=== PATIENT | female | born 1990 | race Caucasian/White ===

== ENCOUNTER 2016-10-04 12:04 | Emergency (ER) | payer OTHER ==
[~2016-10-04 12:04] MED LIST: BUTA1CAP29 PO; ESOM40CA PO; GUAI118L13 PO; TOPI25TA32 PO
--- NOTE | 2016-10-04 13:11 | RAD ---
06, 3 views, 10/04/2016: History: Injury, pain No fracture is identified. The anterior inferior nasal spine is intact. The visualized paranasal sinuses are clear. IMPRESSION: No acute nasal bone abnormality is detected.
[2016-10-04] MEDS ORDERED: TRAMADOL 50 MG TABLET. PO ONE (13:15)
--- NOTE | 2016-10-04 13:36 | PHYS DOC ---
Past History Past Medical History: Migraines Past Surgical History: Tonsillectomy Alcohol Use: None Drug Use: None Adult General Chief Complaint Chief Complaint: HEAD INJURY/TRAUMA HPI HPI 26-year-old female patient state she was helping to patient at her work and he moved his head suddenly and hit her on her nose without loss of consciousness. Patient stated after injury she developed a headache like her previous episode of migraine headache. Review of Systems Review of Systems Constitutional: Denies fever or chills [] Eyes: Denies change in visual acuity, redness, or eye pain [] HENT: see HPI] Respiratory: Denies cough or shortness of breath [] Cardiovascular: No additional information not addressed in HPI [] GI: Denies abdominal pain, nausea, vomiting, bloody stools or diarrhea [] : Denies dysuria or hematuria [] Musculoskeletal: Denies back pain or joint pain [] Integument: Denies rash or skin lesions [] Neurologic: See HPI Endocrine: Denies polyuria or polydipsia [] Current Medications Current Medications Current Medications Medications (Trade) Dose Ordered Sig/Era Start Time Stop Time Status Last Admin Dose Admin Tramadol HCl (Ultram) 50 mg 1X ONCE 10/04/16 13:15 10/04/16 13:16 DC 10/04/16 12:55 50 MG Allergies Allergies Allergies Coded Allergies Type Severity Reaction Last Updated Verified No Known Drug Allergies 05/31/15 No Physical Exam Physical Exam Constitutional: Well developed, well nourished, mild distress, non-toxic appearance. [] HENT: Normocephalic, atraumatic, bilateral external ears normal, oropharynx moist, no oral exudates, nose normal. [] Eyes: PERRLA, EOMI, conjunctiva normal, no discharge. [] Neck: Normal range of motion, no tenderness, supple, no stridor. [] Cardiovascular:Heart rate regular rhythm, no murmur [] Lungs & Thorax: Bilateral breath sounds clear to auscultation [] Abdomen: Bowel sounds normal, soft, no tenderness, no masses, no pulsatile masses. [] Skin: Warm, dry, no erythema, no rash. [] Back: No tenderness, no CVA tenderness. [] Extremities: No tenderness, no cyanosis, no clubbing, ROM intact, no edema. [] Neurologic: Alert and oriented X 3, normal motor function, normal sensory function, no focal deficits noted. [] Psychologic: Affect normal, judgement normal, mood normal. [] Current Patient Data Vital Signs Vital Signs Date Time Temp Pulse Resp B/P Pulse Ox O2 Delivery O2 Flow Rate FiO2 10/04/16 12:55 18 100 Room Air EKG EKG [] Radiology/Procedures Radiology/Procedures [] Course & Med Decision Making Course & Med Decision Making Pertinent Imaging studies reviewed. (See chart for details) [] Dragon Disclaimer Dragon Disclaimer This chart was dictated in whole or in part using Voice Recognition software in a busy, high-work load, and often noisy Emergency Department environment. It may contain unintended and wholly unrecognized errors or omissions. Departure Departure: Impression: Primary Impression: Nasal contusion Additional Impression: Migraine headache Disposition: HOME, SELF-CARE (At 1341) Condition: IMPROVED Referrals: YOUNG BESS (PCP) Patient Instructions: Contusion, Migraine Headache Additional Instructions: Follow-up with your physician as needed Scripts Tramadol Hcl (Ultram)50 Mg [id number] Mg PO PRN Q6HRS PRN PAIN #14 TAB Prov:LEONOR TADEO MD 10/04/16 Problem Qualifiers LEONOR TADEO MD Oct 04, 2016 13:36
[2016-10-04] MEDS ORDERED: TRAM-29 PO (13:43)
[2016-10-04 13:50] VITALS: BP 128/81
== END 2016-10-04 13:50 | disposition home or self-care (01) ==
LOC: ER 12:04
DX: S00.33XA Contusion of nose, initial encounter (principal); G43.909 Migraine, unspecified, not intractable, without status migrainosus; W22.8XXA Striking against or struck by other objects, initial encounter; Y93.89 Activity, other specified; Y99.8 Other external cause status; Y92.89 Other specified places as the place of occurrence of the external cause
CPT/HCPCS: 70150; 99284

== ENCOUNTER → 2017-02-09 | Outpatient (CLI) | payer OTHER ==
[~2017-02-09] MED LIST changes: -TOPI25TA32 PO; +TOPI25TA52 PO; +TRAM-48 PO
--- NOTE | 2017-02-10 10:21 | RAD ---
Indication chronic heel pain. No history of trauma. AP and lateral views of the left calcaneus were obtained. A small spur is noted off the heel. No additional bony finding is seen
== END | disposition home or self-care (01) ==
LOC: DXRAD 18:55
PROVIDERS: ATTEND Nurse Practitioner Family
DX: M79.672 Pain in left foot (principal)
CPT/HCPCS: 73650

== ENCOUNTER → 2017-02-10 | Outpatient (CLI) | payer OTHER ==
[2017-02-10 07:56] LABS: ALBUMIN 3.7 g/dL (3.4-5.0); CALCIUM 8.9 mg/dL (8.5-10.1); CREATININE 1.1 mg/dL (0.6-1.0); GFR 59.6; POTASSIUM 4.2 mmol/L (3.5-5.1); TOTAL BILIRUBIN 0.5 mg/dL (0.2-1.0); TOTAL PROTEIN 7.5 g/dL (6.4-8.2)
[2017-02-10 11:19] LABS: THYROID STIM HORMONE (TSH) 1.746 uIU/mL (0.358-3.740)
[2017-02-11 03:07] LABS: INSULIN LEVEL 37.8 uIU/mL (2.6-24.9)
== END | disposition home or self-care (01) ==
LOC: LAB 07:04
PROVIDERS: ATTEND Nurse Practitioner Family
DX: R63.5 Abnormal weight gain (principal); R53.83 Other fatigue
CPT/HCPCS: 36415; 80053; 83525; 84402; 84403; 84439; 84443

== ENCOUNTER → 2017-05-14 | Outpatient (CLI) | payer OTHER ==
[~2017-05-14] MED LIST changes: +IOHEXOL 240 MG/ML 50ML VIAL. PO ONE; +IOHEXOL 300 MG/ML 75 ML VIAL. IV ONE
[2017-05-14 13:31] LABS: BASO # 0.1 x10^3/uL (0.0-0.2); BASO % 1 % (0-3); EOS # 0.1 x10^3/uL (0.0-0.7); EOS % 1 % (0-3); HEMATOCRIT 45.1 % (36.0-47.0); HEMOGLOBIN 14.9 g/dL (12.0-15.5); LYMPH % 20 % (24-48); MEAN CORPUSCULAR HEMOGLOBIN 29 pg (25-35); MEAN CORPUSCULAR HGB CONC 33 g/dL (31-37); MEAN CORPUSCULAR VOLUME 88 fL (79-100); MONO # 0.7 x10^3/uL (0.0-1.1); MONO % 7 % (0-9); NEUT # 6.8 x10^3uL (1.8-7.7); NEUT % 71 % (31-73); PLATELET COUNT 296 x10^3/uL (140-400); RED BLOOD COUNT 5.13 x10^6/uL (3.50-5.40); RED CELL DISTRIBUTION WIDTH 13.5 % (11.5-14.5); WHITE BLOOD COUNT 9.6 x10^3/uL (4.0-11.0)
[2017-05-14 13:40] LABS: ALBUMIN/GLOBULIN RATIO 1.1 (1.0-1.7); CALCIUM 9.2 mg/dL (8.5-10.1); CREATININE 1.2 mg/dL (0.6-1.0); GFR 53.5; TOTAL BILIRUBIN 0.4 mg/dL (0.2-1.0); TOTAL PROTEIN 7.8 g/dL (6.4-8.2)
[2017-05-14 14:01] LABS: BILIRUBIN,URINE NEG (NEG); CLARITY,URINE HAZY; COLOR,URINE YELLOW; GLUCOSE,URINE NEG (NEG)
[2017-05-14 14:02] LABS: BACTERIA,URINE 0 /HPF (0-FEW); NITRITE,URINE NEG (NEG); RBC,URINE RARE /HPF (0-2); SQUAMOUS EPITHELIAL CELL,UR MOD /LPF; UROBILINOGEN,URINE 0.2 mg/dL (0.2 mg/dL); WBC,URINE OCC /HPF (0-4)
--- NOTE | 2017-05-14 16:25 | RAD ---
CT of the abdomen and pelvis with contrast, 05/14/2017: History: Abdominal pain Multidetector CT imaging was performed following oral and IV administration of contrast. No hepatic abnormality is detected. The gallbladder is unremarkable. The pancreas shows no abnormality. The spleen is of normal size. No renal or adrenal abnormality is detected. The abdominal aorta is unremarkable. No abdominal or pelvic adenopathy is seen. The ovaries are of normal size. An IUD is present centrally in the uterus. The bowel loops are not dilated. The appendix is visualized and shows no abnormality. No free fluid or free air is evident in the abdomen or pelvis. There is a moderate posterior disc osteophyte complex evident at T12-L1. IMPRESSION: No acute abdominal or pelvic abnormality is detected. PQRS Compliance Statement: One or more of the following individualized dose reduction techniques were utilized for this examination: 1. Automated exposure control 2. Adjustment of the mA and/or kV according to patient size 3. Use of iterative reconstruction technique
== END | disposition home or self-care (01) ==
LOC: LAB 12:59
PROVIDERS: ATTEND Internal Medicine
DX: R10.9 Unspecified abdominal pain (principal); M25.78 Osteophyte, vertebrae
CPT/HCPCS: 36415; 74177; 80053; 81001; 83690; 85025; Q9966; Q9967; 87086

== ENCOUNTER 2017-07-20 19:11 | Emergency (ER) | payer OTHER ==
[~2017-07-20] VITALS: Ht 170.2 cm; Wt 107.0 kg
[~2017-07-20 19:11] MED LIST changes: -IOHEXOL 240 MG/ML 50ML VIAL. PO ONE; -IOHEXOL 300 MG/ML 75 ML VIAL. IV ONE
[2017-07-20 19:23] VITALS: BP 128/62
[2017-07-20] MEDS ORDERED: IPRATRPIUM/ALBUTEROL 0.5/2.5MG 3 ML NEBU. NEB ONE (19:45)
--- NOTE | 2017-07-20 19:53 | PHYS DOC ---
Past History Past Medical History: Migraines Past Surgical History: Tonsillectomy, Other Smoking: Non-smoker Alcohol Use: None Drug Use: None Adult General Chief Complaint Chief Complaint: SHORTNESS OF BREATH [facility] HPI Patient is a pleasant 27-year-old female otherwise healthy with history of migraine headaches presents with mild wheezing shortness of breath began 2 days ago. She was seen by her primary care doctor several days before this for a migraine headache started on Topamax and other supportive medications with some improvement of her symptoms. 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 Patient denies any significant fevers, chills, night sweats, history of asthma, COPD or bronchitis. She is a nonsmoker she denies any recent travel outside the country, she is not on control has no other PE risk factors. Patient denies any chest pain, abdominal pain, nausea, vomiting, diarrhea, rash, joint joints, weight gain or UTI symptoms. Differential diagnosis: Acute myocardial ischemia, heart failure, cardiac tamponade, bronchospasm, pulmonary embolism, pneumothorax, pulmonary infection i.e. bronchitis or pneumonia, upper airway obstruction, anaphylaxis, aspiration , psychogenic, pulmonary contusion, toxidrome, pneumomediastinum, noncardiogenic pulmonary edema or ARDS, COPD, tuberculosis, cystic fibrosis, asthma, high altitude pulmonary edema, valvular dysfunction, cardiac dysrhythmia , stroke, neuromuscular diseases like myasthenia gravis gravis, ALS, Guillain- Frey syndrome, metabolic acidosis to include diabetic ketoacidosis, sepsis, and obstructive disorders like massive obesity Review of Systems Review of Systems Constitutional: Denies fever or chills [] Eyes: Denies change in visual acuity, redness, or eye pain [] HENT: sHe has had some nasal congestion without sore throat Respiratory: sHe has had a nonproductive cough no clear shortness of breath just a questionable wheeze[] Cardiovascular: No additional information not addressed in HPI [] GI: Denies abdominal pain, nausea, vomiting, bloody stools or diarrhea [] : Denies dysuria or hematuria [] Musculoskeletal: Denies back pain or joint pain [] Integument: Denies rash or skin lesions [] Neurologic: She has had a headache typical for her for migraine with no focal weakness or sensory changes. His headache is not worse of life and sudden onset and actually is resolved at this time. All other systems were reviewed and found to be within normal limits, except as documented in this note. Current Medications Current Medications Current Medications Medications (Trade) Dose Ordered Sig/Era Start Time Stop Time Status Last Admin Dose Admin Albuterol/ Ipratropium (Duoneb) 3 ml 1X ONCE 07/20/17 19:45 07/20/17 19:46 UNV Allergies Allergies Allergies Coded Allergies Type Severity Reaction Last Updated Verified No Known Drug Allergies 05/31/15 No Physical Exam Physical Exam Vital signs recorded on the chart at this time within normal limits. Constitutional: Well developed, well nourished, no acute distress, non-toxic appearance. [] HENT: Normocephalic, atraumatic, bilateral external ears normal, oropharynx moist, no oral exudates, nose normal. [] Neck: Normal range of motion, no tenderness, supple, significant lymphadenopathy Cardiovascular:Heart rate regular rhythm, no murmur [] Lungs & Thorax: She has a slight expiratory wheeze at the bases of the right lung. There are no retractions, no sensory muscle use patient is not in distress Skin: Warm, dry, no erythema, no rash. [] Extremities:ROM intact, Neurologic: Alert and oriented X 3, normal motor function, normal sensory function, no focal deficits noted. [] Psychologic: Affect normal, judgement normal, mood normal. [] Current Patient Data Vital Signs Vital Signs Date Time Temp Pulse Resp B/P (MAP) Pulse Ox O2 Delivery O2 Flow Rate FiO2 07/20/17 19:23 97.4 78 20 96 Room Air EKG EKG [] Radiology/Procedures Radiology/Procedures []Impression. PA and lateral chest x-ray read by me as a questionable patchy trait in the right lower lung. She has evidence of the same infiltrate on the lateral view as well. There is no clear signs of pleural effusion, there is no pneumothorax no pneumomediastinum. Course & Med Decision Making Course & Med Decision Making Pertinent Labs and Imaging studies reviewed. (See chart for details) She presents with a slight wheeze at the right lung base, we will screen full and form a PA and lateral chest x-ray. Patient also be given a DuoNeb here in the emergency department. 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 She is not tachypnea hypoxic or short of breath on my exam. Criteria: Age < than 50 years Heart rate < 100 Oxygen saturation > 95% No hemoptysis No estrogen use No prior DVT or PE No unilateral leg swelling No surgery or trauma requiring hospitalization within the prior 4 weeks []She does not exhibit any the following symptoms or signs and history physical I will not proceed with a d-dimer patient is low risk for PE Laboratory Tests Test 07/20/17 19:37 Influenza Type A (Rapid) Negative (NEGATIVE) Influenza Type B (Rapid) Negative (NEGATIVE) Impression influenza swab was negative, patient's chest x-ray read by me demonstrate a patchy trait in the right lower lung. Given the location of her wheezing and her decreased breath sounds at believe this is the location of infection. Patient given azithromycin here in the emergency room and is afebrile she is not tachypnea or hypoxic. Patient is nontoxic in appearance she will follow-up with her primary care doctor. Given her course of azithromycin, albuterol inhaler, guaifenesin, Motrin and Tylenol further symptoms. discharge: I've spoken with the patient and/or caregivers. I've explained the patient's condition, diagnosis and treatment plan based on information available to me at this time. I've answered the patient's and/or caregivers questions and addressed any concerns. The patient and/or caregivers have a good understanding the patient's diagnosis, condition and treatment plan as can be expected at this point. Vital signs have been stabilized. The patient's condition is stable for discharge from the emergency department. The patient will pursue further outpatient evaluation with her primary care provider or other designated consulting physician as outlined in the discharge instructions. Patient and/or caregivers are agreeable to this plan of care and follow-up instructions have been explained in detail. The patient and/or caregivers have received these instructions in written format and expressed understanding of these discharge instructions. The patient and her caregivers are aware that if any significant change in condition or worsening of symptoms should prompt him to immediately return to this of the closest emergency department. If an emergent department is not readily available I would encourage him to call 911. Berenice Disclaimer Berenice Disclaimer This electronic medical record was generated, in whole or in part, using a voice recognition dictation system. Departure Departure: Impression: Primary Impression: Pneumonia Disposition: 01 HOME, SELF-CARE Condition: STABLE Referrals: YOUNG BESS (PCP) Patient Instructions: Pneumonia, Adult Additional Instructions: discharge: I've spoken with the patient and/or caregivers. I've explained the patient's condition, diagnosis and treatment plan based on information available to me at this time. I've answered the patient's and/or caregivers questions and addressed any concerns. The patient and/or caregivers have a good understanding the patient's diagnosis, condition and treatment plan as can be expected at this point. Vital signs have been stabilized. The patient's condition is stable for discharge from the emergency department. The patient will pursue further outpatient evaluation with her primary care provider or other designated consulting physician as outlined in the discharge instructions. Patient and/or caregivers are agreeable to this plan of care and follow-up instructions have been explained in detail. The patient and/or caregivers have received these instructions in written format and expressed understanding of these discharge instructions. The patient and her caregivers are aware that if any significant change in condition or worsening of symptoms should prompt him to immediately return to this of the closest emergency department. If an emergent department is not readily available I would encourage him to call 911. Scripts Naproxen Sodium (NAPROXEN SODIUM) 275 Mg Tablet 275 MG PO BID for 7 Days, #14 TAB Prov: EDMUNDO WALSH MD 07/20/17 Acetaminophen (TYLENOL) 325 Mg Tablet 1-2 TAB PO QID, #30 TAB 2 Refills Prov: EDMUNDO WALSH MD 07/20/17 Guaifenesin/Dextromethorphan (MUCINEX DM ER 1,200-60 MG TAB) 1 Each Tbmp.12hr 1 TAB PO BID, #20 TAB 1 Refill Prov: EDMUNDO WALSH MD 07/20/17 Azithromycin (AZITHROMYCIN TABLET) 250 Mg Tablet 250 MG PO DAILY for ANTI-BIOTIC for 5 Days, #5 TAB 0 Refills Please take 2 times the first day Please take one tablet day 2 through 5. Prov: EDMUNDO WALSH MD 07/20/17 EDMUNOD WALSH MD Jul 20, 2017 19:53
[2017-07-20 20:08] LABS: INFLUENZA A PATIENT NEGATIVE (NEGATIVE); INFLUENZA B PATIENT NEGATIVE (NEGATIVE)
[2017-07-20] MEDS ORDERED: GUAI1TBM10 PO (20:43)
[2017-07-20] MEDS ORDERED: AZIT250T6 PO (20:43)
[2017-07-20] MEDS ORDERED: ACET325T9 PO (20:43)
[2017-07-20] MEDS ORDERED: NAPR275T59 PO (20:43)
[2017-07-20] MEDS ORDERED: ALBU8.5H8 INH (20:45)
[2017-07-20] MEDS ORDERED: AZITHROMYCIN 250 MG TABLET. PO ONE (21:00)
--- NOTE | 2017-07-21 08:43 | RAD ---
Chest radiograph 07/20/2017 9:33 PM Indication: Wheezing Comparison: None available Technique: PA and lateral views of the chest are provided. Findings: Cardiomediastinal silhouette is within normal limits. No pleural effusions, pulmonary vascular congestion or pneumothorax. There is bronchial wall thickening suggestive of bronchitis, primarily involving the right lower lobe. Osseous structures are normal. Impression: Bronchial wall thickening is suggestive of bronchitis, primarily involving the right lower lobe. Alternate etiology would include an interstitial pneumonitis.
== END 2017-07-20 20:52 | disposition home or self-care (01) ==
LOC: ER 19:11
DX: J18.9 Pneumonia, unspecified organism (principal); G43.909 Migraine, unspecified, not intractable, without status migrainosus
CPT/HCPCS: 71020; 87804; 94640; 99285; J0456; J7620

== ENCOUNTER 2018-05-09 11:19 | Emergency (ER) | payer OTHER ==
[~2018-05-09] VITALS: Ht 170.2 cm; Wt 100.0 kg
[~2018-05-09 11:19] MED LIST changes: +ACET325T9 PO; +ALBU8.5H8 INH; +AZIT250T6 PO; +GUAI1TBM10 PO; +NAPR275T59 PO
[2018-05-09] MEDS ORDERED: HYDROcodone/APAP 5/325MG 1 TAB TABLET PO ONE (12:15)
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
[2018-05-09] MEDS ORDERED: IBUP800T19 PO (13:10)
[2018-05-09] MEDS ORDERED: HYDR-971 PO (13:10)
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
[2018-05-09 13:30] VITALS: BP 125/66
== END 2018-05-09 13:30 | disposition home or self-care (01) ==
LOC: ER 11:19
DX: S82.831A Other fracture of upper and lower end of right fibula, initial encounter for closed fracture (principal); S50.01XA Contusion of right elbow, initial encounter; S30.1XXA Contusion of abdominal wall, initial encounter; S20.211A Contusion of right front wall of thorax, initial encounter; M25.561 Pain in right knee; V43.62XA Car passenger injured in collision with other type car in traffic accident, initial encounter; Y93.89 Activity, other specified; Y92.488 Other paved roadways as the place of occurrence of the external cause; Y99.8 Other external cause status
CPT/HCPCS: 29505; 71101; 72170; 73080; 73564; 99284

== ENCOUNTER → 2018-08-08 | Outpatient (CLI) | payer OTHER ==
[~2018-08-08] MED LIST changes: +ALBU2.5V8 INH; -ALBU8.5H8 INH; +HYDR-3165 PO; +IBUP800T19 PO
--- NOTE | 2018-08-08 09:37 | RAD ---
Abdominal wall ultrasound, 08/08/2018: HISTORY: Lump The area of clinical concern along the left and anterior abdominal wall was carefully scanned. There is a 17 x 14 x 11 mm subcutaneous mass. It demonstrates smooth margins. Its echogenicity is similar to that of the adjacent subcutaneous fat. The appearance suggests a lipoma. No other abnormality is seen. IMPRESSION: Probable subcutaneous lipoma. Clinical surveillance is suggested. Electronically signed by: Caesar Waggoner MD (08/08/2018 9:33 AM) [facility]
== END | disposition home or self-care (01) ==
LOC: US 08:24
PROVIDERS: ATTEND Registered Nurse
DX: R19.00 Intra-abdominal and pelvic swelling, mass and lump, unspecified site (principal)
CPT/HCPCS: 76705

== ENCOUNTER → 2018-09-16 | Outpatient (CLI) | payer OTHER ==
[~2018-09-16] MED LIST changes: +GUAI120L35 PO
--- NOTE | 2018-09-16 15:27 | RAD ---
EXAM: Chest, 2 views. HISTORY: Cough. COMPARISON: 07/20/2017 FINDINGS: 2 views the chest are obtained. There is no infiltrate, pleural effusion or pneumothorax. The heart is normal in size. IMPRESSION: No acute pulmonary finding. Electronically signed by: Crista Jacobson MD (09/16/2018 3:24 PM) [place] [id number]
== END | disposition home or self-care (01) ==
LOC: DXRAD 14:57
PROVIDERS: ATTEND Internal Medicine
DX: R07.89 Other chest pain (principal); R05 Cough
CPT/HCPCS: 71046

== ENCOUNTER 2018-10-19 08:51 | Emergency (ER) | payer OTHER ==
[~2018-10-19] VITALS: Ht 170.2 cm; Wt 113.3 kg
[~2018-10-19 08:51] MED LIST changes: -GUAI120L35 PO
[2018-10-19 08:55] VITALS: BP 122/73
[2018-10-19 09:54] LABS: INFLUENZA A PATIENT NEGATIVE (NEGATIVE); INFLUENZA B PATIENT NEGATIVE (NEGATIVE)
[2018-10-19] MEDS ORDERED: GUAI120L35 PO (10:14)
--- NOTE | 2018-10-19 10:14 | PHYS DOC ---
Past History Past Medical History: No Pertinent History Past Surgical History: Cholecystectomy, Tonsillectomy Smoking: Non-smoker Alcohol Use: None Drug Use: None Adult General Chief Complaint Chief Complaint: FLU SYMPTOM HPI HPI 28-year-old female presents with 4 day history of cough and congestion and generalized aches. Patient also has a low-level headache. She has had a low- grade fever of 99. The patient's cough is non-productive. She has some mild sore throat. She is concerned about influenza because of the body aches. Review of Systems Review of Systems Constitutional: Denies fever or chills [] Eyes: Denies change in visual acuity, redness, or eye pain [] HENT: Nasal congestion and sore throat [] Respiratory: Cough without shortness of breath [] Cardiovascular: No additional information not addressed in HPI [] GI: Denies abdominal pain, nausea, vomiting, bloody stools or diarrhea [] : Denies dysuria or hematuria [] Musculoskeletal: Denies back pain or joint pain [] Integument: Denies rash or skin lesions [] Neurologic: Headache. Denies focal weakness or sensory changes [] Endocrine: Denies polyuria or polydipsia [] All other systems were reviewed and found to be within normal limits, except as documented in this note. Allergies Allergies Allergies Coded Allergies Type Severity Reaction Last Updated Verified No Known Drug Allergies 05/31/15 No Physical Exam Physical Exam Constitutional: Well developed, well nourished, no acute distress, non-toxic appearance. [] HENT: Normocephalic, atraumatic, bilateral external ears normal, oropharynx moist, no oral exudates, nose congested. [] Eyes: PERRLA, EOMI, conjunctiva normal, no discharge. [] Neck: Normal range of motion, no tenderness, supple, no stridor. [] Cardiovascular:Heart rate regular rhythm, no murmur [] Lungs & Thorax: Bilateral breath sounds clear to auscultation [] Abdomen: Bowel sounds normal, soft, no tenderness, no masses, no pulsatile masses. [] Skin: Warm, dry, no erythema, no rash. [] Back: No tenderness, no CVA tenderness. [] Extremities: No tenderness, no cyanosis, no clubbing, ROM intact, no edema. [] Neurologic: Alert and oriented X 3, normal motor function, normal sensory function, no focal deficits noted. [] Psychologic: Affect normal, judgement normal, mood normal. [] Current Patient Data Vital Signs Vital Signs Date Time Temp Pulse Resp B/P (MAP) Pulse Ox O2 Delivery O2 Flow Rate FiO2 10/19/18 08:55 98.5 86 16 98 Room Air Lab Results Laboratory Tests Test 10/19/18 08:59 Influenza Type A (Rapid) Negative (NEGATIVE) Influenza Type B (Rapid) Negative (NEGATIVE) Group A Streptococcus Rapid Negative (NEGATIVE) EKG EKG [] Radiology/Procedures Radiology/Procedures [] Course & Med Decision Making Course & Med Decision Making Pertinent Labs and Imaging studies reviewed. (See chart for details) The patient's primary concern is that her cough is keeping her up at night. I will discharge her with a short course of cough syrup with codeine. He is stable for discharge at this time. [] Dragon Disclaimer Dragon Disclaimer This electronic medical record was generated, in whole or in part, using a voice recognition dictation system. Departure Departure: Impression: Primary Impression: Viral URI with cough Disposition: 01 HOME, SELF-CARE Condition: STABLE Referrals: BETTIE QUINTANA (PCP) Patient Instructions: Upper Respiratory Infection, Adult, [id number] Scripts Guaifenesin/Codeine Phosphate (Codeine-Guaifen 10-100 mg/5 ml) 120 Ml Liquid 5-10 ML PO Q6HRS PRN for COUGH, #120 ML Prov: JANEEN ROGERS DO 10/19/18 JANEEN ROGERS DO Oct 19, 2018 10:14
== END 2018-10-19 10:18 | disposition home or self-care (01) ==
LOC: ER 08:51
DX: J06.9 Acute upper respiratory infection, unspecified (principal); B97.89 Other viral agents as the cause of diseases classified elsewhere
CPT/HCPCS: 87070; 87804; 87880; 99283

== ENCOUNTER → 2018-12-09 | Outpatient (CLI) | payer OTHER ==
[~2018-12-09] MED LIST changes: +GUAI120L35 PO
== END | disposition home or self-care (01) ==
LOC: LAB 15:03
PROVIDERS: ATTEND Internal Medicine
DX: R11.2 Nausea with vomiting, unspecified (principal)
CPT/HCPCS: 36415; 84702

== ENCOUNTER 2019-01-29 17:23 | Emergency (ER) | payer OTHER ==
--- NOTE | 2019-01-29 17:49 | ED.ADGEN ---
Past History Past Medical History: Migraines Past Surgical History: Cholecystectomy, Tonsillectomy Smoking: Non-smoker Alcohol Use: None Drug Use: None Adult General Chief Complaint Chief Complaint "... I am having one of my migraine attacks... Have had it since 9:30 this morning..... It has not gone away with [id number] meds... HPI HPI Patient is a 28 year old female who presents with above hx and migraine headache. Patient states presentation is similar prior migraines. Discussed more prolonged exacerbation than previous typical migraine for her. Patient states this is not the worst headache she ever had. Pain is localized in scalp coming up over the back had to forehead area. No temporal artery tenderness. Patient does have some nausea and photophobia. Recent travel. No significant ill contacts. No history immunosuppression. No history of trauma. Patient normally follows with Dr. Fabian. Review of Systems Review of Systems Constitutional: Denies fever or chills [] Eyes: Denies change in visual acuity, redness, or eye pain []complaints of photophobia HENT: Denies nasal congestion or sore throat [] Respiratory: Denies cough or shortness of breath [] Cardiovascular: No additional information not addressed in HPI [] GI: Denies abdominal pain, vomiting, bloody stools or diarrhea []complaints of nausea : Denies dysuria or hematuria [] Musculoskeletal: Denies back pain or joint pain [] Integument: Denies rash or skin lesions [] Neurologic: Complaints of migraine headache,. Denies focal weakness or sensory changes [] Endocrine: Denies polyuria or polydipsia [] All other systems were reviewed and found to be within normal limits, except as documented in this note. Family History Family History Noncontributory Current Medications Current Medications Current Medications Medications (Trade) Dose Ordered Sig/Era Start Time Stop Time Status Last Admin Dose Admin Diphenhydramine HCl (Benadryl) 50 mg 1X ONCE 01/29/19 18:30 01/29/19 18:31 DC 01/29/19 18:31 50 MG Ketorolac Tromethamine (Toradol 30mg Vial) 30 mg 1X ONCE 01/29/19 18:45 01/29/19 18:46 DC 01/29/19 18:42 30 MG Lactated Ringer's 1,000 ml @ 1,000 mls/hr Q1H 01/29/19 17:50 01/29/19 18:49 DC 01/29/19 18:31 1,000 MLS/HR Prochlorperazine Edisylate (Compazine) 10 mg 1X ONCE 01/29/19 18:30 01/29/19 18:31 DC 01/29/19 18:34 10 MG Sumatriptan Succinate (Imitrex) 6 mg 1X ONCE 01/29/19 18:45 01/29/19 18:46 DC 01/29/19 18:40 6 MG See nursing for home meds Allergies Allergies Allergies Coded Allergies Type Severity Reaction Last Updated Verified No Known Drug Allergies 01/29/19 No Physical Exam Physical Exam Constitutional: Well developed, well nourished, moderate acute distress, non- toxic appearance. [] HENT: Normocephalic, atraumatic, bilateral external ears normal, oropharynx moist, no oral exudates, nose normal. [] Eyes: PERRLA, EOMI, conjunctiva normal, no discharge. [] Neck: Normal range of motion, no tenderness, supple, no stridor. [] Cardiovascular:Heart rate regular rhythm, no murmur [] Lungs & Thorax: Bilateral breath sounds with apex auscultation [] Abdomen: Bowel sounds normal, soft, no tenderness, no masses, no pulsatile masses. [] Obese. Skin: Warm, dry, no erythema, no rash. [] Back: No tenderness, no CVA tenderness. [] Extremities: No tenderness, no cyanosis, no clubbing, ROM intact, no edema. [] Neurologic: Alert and oriented X 3, normal motor function, normal sensory function, no focal deficits noted. []ERs +2 patella and brachial. Ambulatory without problems. No drift. Leather Coverer equal. Psychologic: Affect anxious, judgement normal, mood normal. [] Current Patient Data Vital Signs Vital Signs Date Time Temp Pulse Resp B/P (MAP) Pulse Ox O2 Delivery O2 Flow Rate FiO2 01/29/19 20:02 98.5 64 16 113/65 (81) 96 Room Air Lab Results Laboratory Tests Test 01/29/19 17:54 01/29/19 18:08 01/29/19 18:40 Urine Collection Type Unknown Urine Color Straw Urine Clarity Hazy Urine pH 8.5 Urine Specific [place] 1.020 Urine Protein Neg (NEG-TRACE) Urine Glucose (UA) Neg mg/dL (NEG) Urine Ketones (Stick) Neg mg/dL (NEG) Urine Blood Mod (NEG) Urine Nitrite Neg (NEG) Urine Bilirubin Neg (NEG) Urine Urobilinogen Dipstick 0.2 mg/dL (0.2 mg/dL) Urine Leukocyte Esterase Neg (NEG) Urine RBC 1-2 /HPF (0-2) Urine WBC Occ /HPF (0-4) Urine Squamous Epithelial Cells Mod /LPF Urine Amorphous Sediment Present /HPF Urine Bacteria 0 /HPF (0-FEW) Urine Mucus Slight /LPF Urine Test Negative (NEG) Urine Opiates Screen Neg (NEG) Urine Methadone Screen Neg (NEG) Urine Barbiturates Neg (NEG) Urine Phencyclidine Screen Neg (NEG) Urine Amphetamine/Methamphetamine Neg (NEG) Urine Benzodiazepines Screen Neg (NEG) Urine Cocaine Screen Neg (NEG) Urine Cannabinoids Screen Neg (NEG) Urine Ethyl Alcohol Neg (NEG) POC Urine HCG, Qualitative hcg negative (Negative) White Blood Count 8.0 x10^3/uL (4.0-11.0) Red Blood Count 4.87 x10^6/uL (3.50-5.40) Hemoglobin 14.4 g/dL (12.0-15.5) Hematocrit 43.4 % (36.0-47.0) Mean Corpuscular Volume 89 fL (79-100) Mean Corpuscular Hemoglobin 30 pg (25-35) Mean Corpuscular Hemoglobin Concent 33 g/dL (31-37) Red Cell Distribution Width 13.1 % (11.5-14.5) Platelet Count 256 x10^3/uL (140-400) Neutrophils (%) (Auto) 68 % (31-73) Lymphocytes (%) (Auto) 22 % (24-48) L Monocytes (%) (Auto) 8 % (0-9) Eosinophils (%) (Auto) 2 % (0-3) Basophils (%) (Auto) 1 % (0-3) Neutrophils # (Auto) 5.5 x10^3uL (1.8-7.7) Lymphocytes # (Auto) 1.8 x10^3/uL (1.0-4.8) Monocytes # (Auto) 0.6 x10^3/uL (0.0-1.1) Eosinophils # (Auto) 0.1 x10^3/uL (0.0-0.7) Basophils # (Auto) 0.0 x10^3/uL (0.0-0.2) Erythrocyte Sedimentation Rate 23 (0-25) Prothrombin Time 10.0 SEC (9.4-11.4) Prothrombin Time INR 1.0 (0.9-1.1) PTT 26 SEC (23-33) D-Dimer (Eula) 0.22 mg/L (0.00-0.50) Sodium Level 142 mmol/L (136-145) Potassium Level 3.6 mmol/L (3.5-5.1) Chloride Level 105 mmol/L (98-107) Carbon Dioxide Level 31 mmol/L (21-32) Anion Gap 6 (6-14) Blood Urea Nitrogen 14 mg/dL (7-20) Creatinine 1.0 mg/dL (0.6-1.0) Estimated GFR (Cockcroft-Gault) 65.6 Glucose Level 115 mg/dL (70-99) H Calcium Level 9.3 mg/dL (8.5-10.1) Magnesium Level 2.0 mg/dL (1.8-2.4) Total Bilirubin 0.4 mg/dL (0.2-1.0) Direct Bilirubin 0.1 mg/dL (0.0-0.2) Aspartate Amino Transferase (AST) 20 U/L (15-37) Alanine Aminotransferase (ALT) 64 U/L (14-59) H Alkaline Phosphatase 59 U/L (46-116) Creatine Kinase 69 U/L (26-192) Troponin I Quantitative < 0.017 ng/mL (0-0.055) Total Protein 7.5 g/dL (6.4-8.2) Albumin 3.6 g/dL (3.4-5.0) Lipase 158 U/L (73-393) EKG EKG My interpretation of EKG shows a sinus rhythm at 67 bpm. Some nonspecific contour abnormalities anterior lateral leads. But no findings of acute STEMI with contralateral changes[] Radiology/Procedures Radiology/Procedures [][address] [address] IMAGING REPORT Signed PATIENT: DOT TIDWELL ACCOUNT: [id number] : 1990 LOCATION: ER AGE: 28 SEX: F EXAM STATUS: REG ER ORD. PHYSICIAN: ISIDRO BUSTSO MD REASON: Severe migraine, hx of migraine PROCEDURE: CT HEAD WO CONTRAST CT brain without contrast. HISTORY: Severe migraine CT scan of brain was done without contrast. Sinuses are clear. There is no skull fracture. Mastoids are normally aerated. There is no intracranial hemorrhage or subdural hematoma. There is no mass or shift of the midline. Ventricles are normal in size. There are no abnormal areas of increased or decreased attenuation. There is not evidence of an acute CVA. IMPRESSION: 1. No intracranial hemorrhage or acute finding. [facility] Compliance Statement: One or more of the following individualized dose reduction techniques were utilized for this examination: 1. Automated exposure control 2. Adjustment of the mA and/or kV according to patient size 3. Use of iterative reconstruction technique Electronically signed by: Charles Aldana MD (01/29/2019 6:18 PM) [facility] DICTATED AND SIGNED BY: CHARLES ALDANA MD DATE: 01/29/191817 CC: ISIDRO BUSTOS MD; BETTIE FABIAN ~ Course & Med Decision Making Course & Med Decision Making Pertinent Labs and Imaging studies reviewed. (See chart for details) Pt. requesting discharge. 1930 hrs. Pt. currently defers spinal tap. Exhibit UCAR capacity. Review benefits and complications of spinal tap. After fluids and meds patient reports headache level is at 2 out of 10. Patient states his marked improvement. Patient was sent home with prescription for Imitrex trial dosage 100 mg at the beginning of headache. Zofran for nausea and vomiting. Patient take Tylenol and ibuprofen. For marked discomfort may take Vicoprofen. Follow-up primary care. Follow-up with neurology. Return if any concerns. [] Final Impression Final Impression 1. Migraine Headache[] Dragon Disclaimer Dragon Disclaimer This electronic medical record was generated, in whole or in part, using a voice recognition dictation system. Discharge Summary Visit Information Final Diagnosis Problems Medical Problems: (1) Migraine headache Status: Acute Brief Hospital Course Allergies Allergies Coded Allergies Type Severity Reaction Last Updated Verified No Known Drug Allergies 01/29/19 No Vital Signs Vital Signs Date Time Temp Pulse Resp B/P (MAP) Pulse Ox O2 Delivery O2 Flow Rate FiO2 01/29/19 20:02 98.5 64 16 113/65 (81) 96 Room Air Lab Results Laboratory Tests Test 01/29/19 17:54 01/29/19 18:08 01/29/19 18:40 Urine Collection Type Unknown Urine Color Straw Urine Clarity Hazy Urine pH 8.5 Urine Specific [place] 1.020 Urine Protein Neg (NEG-TRACE) Urine Glucose (UA) Neg mg/dL (NEG) Urine Ketones (Stick) Neg mg/dL (NEG) Urine Blood Mod (NEG) Urine Nitrite Neg (NEG) Urine Bilirubin Neg (NEG) Urine Urobilinogen Dipstick 0.2 mg/dL (0.2 mg/dL) Urine Leukocyte Esterase Neg (NEG) Urine RBC 1-2 /HPF (0-2) Urine WBC Occ /HPF (0-4) Urine Squamous Epithelial Cells Mod /LPF Urine Amorphous Sediment Present /HPF Urine Bacteria 0 /HPF (0-FEW) Urine Mucus Slight /LPF Urine Test Negative (NEG) Urine Opiates Screen Neg (NEG) Urine Methadone Screen Neg (NEG) Urine Barbiturates Neg (NEG) Urine Phencyclidine Screen Neg (NEG) Urine Amphetamine/Methamphetamine Neg (NEG) Urine Benzodiazepines Screen Neg (NEG) Urine Cocaine Screen Neg (NEG) Urine Cannabinoids Screen Neg (NEG) Urine Ethyl Alcohol Neg (NEG) Bedside Urine HCG, Qualitative hcg negative (Negative) White Blood Count 8.0 x10^3/uL (4.0-11.0) Red Blood Count 4.87 x10^6/uL (3.50-5.40) Hemoglobin 14.4 g/dL (12.0-15.5) Hematocrit 43.4 % (36.0-47.0) Mean Corpuscular Volume 89 fL (79-100) Mean Corpuscular Hemoglobin 30 pg (25-35) Mean Corpuscular Hemoglobin Concent 33 g/dL (31-37) Red Cell Distribution Width 13.1 % (11.5-14.5) Platelet Count 256 x10^3/uL (140-400) Neutrophils (%) (Auto) 68 % (31-73) Lymphocytes (%) (Auto) 22 % (24-48) Monocytes (%) (Auto) 8 % (0-9) Eosinophils (%) (Auto) 2 % (0-3) Basophils (%) (Auto) 1 % (0-3) Neutrophils # (Auto) 5.5 x10^3uL (1.8-7.7) Lymphocytes # (Auto) 1.8 x10^3/uL (1.0-4.8) Monocytes # (Auto) 0.6 x10^3/uL (0.0-1.1) Eosinophils # (Auto) 0.1 x10^3/uL (0.0-0.7) Basophils # (Auto) 0.0 x10^3/uL (0.0-0.2) Erythrocyte Sedimentation Rate 23 (0-25) Prothrombin Time 10.0 SEC (9.4-11.4) Prothromb Time International Ratio 1.0 (0.9-1.1) Activated Partial Thromboplast Time 26 SEC (23-33) D-Dimer (Eula) 0.22 mg/L (0.00-0.50) Sodium Level 142 mmol/L (136-145) Potassium Level 3.6 mmol/L (3.5-5.1) Chloride Level 105 mmol/L (98-107) Carbon Dioxide Level 31 mmol/L (21-32) Anion Gap 6 (6-14) Blood Urea Nitrogen 14 mg/dL (7-20) Creatinine 1.0 mg/dL (0.6-1.0) Estimated GFR (Cockcroft-Gault) 65.6 Glucose Level 115 mg/dL (70-99) Calcium Level 9.3 mg/dL (8.5-10.1) Magnesium Level 2.0 mg/dL (1.8-2.4) Total Bilirubin 0.4 mg/dL (0.2-1.0) Direct Bilirubin 0.1 mg/dL (0.0-0.2) Aspartate Amino Transf (AST/SGOT) 20 U/L (15-37) Alanine Aminotransferase (ALT/SGPT) 64 U/L (14-59) Alkaline Phosphatase 59 U/L (46-116) Creatine Kinase 69 U/L (26-192) Troponin I Quantitative < 0.017 ng/mL (0-0.055) Total Protein 7.5 g/dL (6.4-8.2) Albumin 3.6 g/dL (3.4-5.0) Lipase 158 U/L (73-393) Brief Hospital Course Ms. Tidwell is a 28 old female who presented with migraine headache. Discharge Information Condition at Discharge: Improved, Stable Disposition/Orders: D/C to Home Dischare Medications Current Medications Lactated Ringer's 1,000 ml @ 1,000 mls/hr Q1H IV Last administered on 01/29/19at 18:31; Admin Dose 1,000 MLS/HR; Start 01/29/19 at 17:50; Stop 01/29/19 at 18:49; Status DC Diphenhydramine HCl (Benadryl) 50 mg 1X ONCE IV Last administered on 01/29/19at 18:31; Admin Dose 50 MG; Start 01/29/19 at 18:30; Stop 01/29/19 at 18:31; Status DC Prochlorperazine Edisylate (Compazine) 10 mg 1X ONCE IV Last administered on 01/29/19at 18:34; Admin Dose 10 MG; Start 01/29/19 at 18:30; Stop 01/29/19 at 18:31; Status DC Ketorolac Tromethamine (Toradol 30mg Vial) 30 mg 1X ONCE IV Last administered on 01/29/19at 18:42; Admin Dose 30 MG; Start 01/29/19 at 18:45; Stop 01/29/19 at 18:46; Status DC Sumatriptan Succinate (Imitrex) 6 mg 1X ONCE SQ Last administered on 01/29/19at 18:40; Admin Dose 6 MG; Start 01/29/19 at 18:45; Stop 01/29/19 at 18:46; Status DC Active Scripts Active Imitrex (Sumatriptan Succinate) 100 Mg Tablet 100 Mg PO 1X PRN PRN Zofran (Ondansetron Hcl) 8 Mg Tablet 8 Mg PO QIDPRN PRN Hydrocodone-Ibuprofen 7.5-200 (Hydrocodone/Ibuprofen) 1 Each Tablet 1 Tab PO PRN Q6HRS PRN Codeine-Guaifen 10-100 mg/5 ml (Guaifenesin/Codeine Phosphate) 120 Ml Liquid 5- 10 Ml PO Q6HRS PRN Chandler 5-325 Tablet (Hydrocodone Bit/Acetaminophen) 1 Each Tablet 1 Tab PO PRN Q6HRS PRN Ibuprofen 800 Mg Tablet 800 Mg PO TID PRN Proair Hfa Inhaler (Albuterol Sulfate) 8.5 Gm Hfa.aer.ad 1 Puff INH PRN Q6HRS PRN 5 Days Naproxen Sodium 275 Mg Tablet 275 Mg PO BID 7 Days Tylenol (Acetaminophen) 325 Mg Tablet 1-2 Tab PO QID Mucinex Dm Er 1,200-60 Mg Tab (Guaifenesin/Dextromethorphan) 1 Each Tbmp.12hr 1 Tab PO BID Azithromycin Tablet (Azithromycin) 250 Mg Tablet 250 Mg PO DAILY 5 Days Please take 2 times the first day Please take one tablet day 2 through 5. Ultram (Tramadol HCl) 50 Mg Tablet 50 Mg PO PRN Q6HRS PRN Fioricet 50-300-40 Mg Capsule (Butalb/Acetaminophen/Caffeine) 1 Each Capsule 1 Each PO Q8HRS PRN Guaifenesin-Codeine Syrup (Guaifenesin/Codeine Phosphate) 118 Ml Liquid 5-10 Ml PO Q4HRS PRN Topamax (Topiramate) 25 Mg Tablet 1 Tab PO BID Reported Nexium Capsule (Esomeprazole Magnesium) 40 Mg Capsule. 1 Cap PO DAILY Dragon Disclaimer This chart was dictated in whole or in part using Voice Recognition software in a busy, high-work load, and often noisy Emergency Department environment. It may contain unintended and wholly unrecognized errors or omissions. ISIDRO BUSTOS MD Jan 29, 2019 17:49
[2019-01-29] MEDS ORDERED: IV RINGERS SOLUTION,LACTATED 1,000 ML IV SCH (17:50)
[2019-01-29 18:19] LABS: BARBITURATES NEG (NEG); BENZODIAZEPINES NEG (NEG); CANNABINOIDS NEG (NEG); COCAINE NEG (NEG); METHADONE NEG (NEG); OPIATES NEG (NEG); PHENCYCLIDINE NEG (NEG)
--- NOTE | 2019-01-29 18:21 | RAD ---
CT brain without contrast. HISTORY: Severe migraine CT scan of brain was done without contrast. Sinuses are clear. There is no skull fracture. Mastoids are normally aerated. There is no intracranial hemorrhage or subdural hematoma. There is no mass or shift of the midline. Ventricles are normal in size. There are no abnormal areas of increased or decreased attenuation. There is not evidence of an acute CVA. IMPRESSION: 1. No intracranial hemorrhage or acute finding. [facility] Compliance Statement: One or more of the following individualized dose reduction techniques were utilized for this examination: 1. Automated exposure control 2. Adjustment of the mA and/or kV according to patient size 3. Use of iterative reconstruction technique Electronically signed by: Charles Aldana MD (01/29/2019 6:18 PM) [facility]
[2019-01-29 18:22] LABS: AMPHETAMINE/METHAMPHETAMINE NEG (NEG)
[2019-01-29 18:25] LABS: BACTERIA,URINE 0 /HPF (0-FEW); BILIRUBIN,URINE NEG (NEG); CLARITY,URINE HAZY; COLOR,URINE STRAW; GLUCOSE,URINE NEG (NEG); NITRITE,URINE NEG (NEG); UROBILINOGEN,URINE 0.2 mg/dL (0.2 mg/dL); WBC,URINE OCC /HPF (0-4)
[2019-01-29 18:26] LABS: AMORPHOUS SEDIMENT,UR PRESENT /HPF; SQUAMOUS EPITHELIAL CELL,UR MOD /LPF
[2019-01-29 18:28] LABS: U PREG PATIENT NEGATIVE (NEG)
[2019-01-29] MEDS ORDERED: PROCHLORPERAZINE 10 MG/2 ML VIAL. IV ONE (18:30)
[2019-01-29] MEDS ORDERED: diphenhydrAMINE 50 MG/ML VIAL IV ONE (18:30)
[2019-01-29] MEDS ORDERED: ONDA8TAB9 PO (18:34)
[2019-01-29] MEDS ORDERED: SUMA100T3 PO (18:34)
[2019-01-29] MEDS ORDERED: HYDR-1179 PO (18:34)
[2019-01-29] MEDS ORDERED: SUMAtriptan SUCC 6 MG/0.5 ML VIAL SQ ONE (18:45)
[2019-01-29] MEDS ORDERED: KETOROLAC 30 MG/ML VIAL. IV ONE (18:45)
[2019-01-29 18:49] LABS: BASO % 1 % (0-3); EOS # 0.1 x10^3/uL (0.0-0.7); EOS % 2 % (0-3); HEMATOCRIT 43.4 % (36.0-47.0); HEMOGLOBIN 14.4 g/dL (12.0-15.5); LYMPH # 1.8 x10^3/uL (1.0-4.8); LYMPH % 22 % (24-48); MEAN CORPUSCULAR HEMOGLOBIN 30 pg (25-35); MEAN CORPUSCULAR HGB CONC 33 g/dL (31-37); MEAN CORPUSCULAR VOLUME 89 fL (79-100); MONO # 0.6 x10^3/uL (0.0-1.1); MONO % 8 % (0-9); NEUT # 5.5 x10^3uL (1.8-7.7); NEUT % 68 % (31-73); PLATELET COUNT 256 x10^3/uL (140-400); RED BLOOD COUNT 4.87 x10^6/uL (3.50-5.40); RED CELL DISTRIBUTION WIDTH 13.1 % (11.5-14.5)
[2019-01-29 19:07] LABS: ALBUMIN 3.6 g/dL (3.4-5.0); CALCIUM 9.3 mg/dL (8.5-10.1); DIRECT BILIRUBIN 0.1 mg/dL (0.0-0.2); GFR 65.6; POTASSIUM 3.6 mmol/L (3.5-5.1); TOTAL BILIRUBIN 0.4 mg/dL (0.2-1.0); TOTAL PROTEIN 7.5 g/dL (6.4-8.2)
[2019-01-29 19:53] LABS: SEDIMENTATION RATE 23 (0-25)
[2019-01-29 20:02] VITALS: BP 113/65
== END 2019-01-29 20:03 | disposition home or self-care (01) ==
LOC: ER 17:23
DX: G43.909 Migraine, unspecified, not intractable, without status migrainosus (principal)
CPT/HCPCS: 36415; 70450; 80048; 80076; 80307; 81001; 81025; 82550; 83690; 83735; 84443; 84484; 85025; 85379; 85610; 85651; 85730; 93005; 96372; 96374; 96375; 99285; J0780; J1200; J1885; J3030; J7120

== ENCOUNTER → 2019-02-25 | Outpatient (CLI) | payer OTHER ==
[2019-01-29 20:02] VITALS: BP 113/65
[~2019-02-25] MED LIST changes: +HYDR-1179 PO; +ONDA8TAB9 PO; +SUMA100T3 PO
[2019-02-25 09:58] LABS: BASO % 1 % (0-3); EOS # 0.1 x10^3/uL (0.0-0.7); EOS % 2 % (0-3); HEMATOCRIT 43.9 % (36.0-47.0); HEMOGLOBIN 14.6 g/dL (12.0-15.5); LYMPH # 1.6 x10^3/uL (1.0-4.8); LYMPH % 23 % (24-48); MEAN CORPUSCULAR HEMOGLOBIN 29 pg (25-35); MEAN CORPUSCULAR HGB CONC 33 g/dL (31-37); MEAN CORPUSCULAR VOLUME 88 fL (79-100); MONO # 0.5 x10^3/uL (0.0-1.1); MONO % 8 % (0-9); NEUT # 4.6 x10^3uL (1.8-7.7); NEUT % 67 % (31-73); PLATELET COUNT 277 x10^3/uL (140-400); RED BLOOD COUNT 5.02 x10^6/uL (3.50-5.40); RED CELL DISTRIBUTION WIDTH 12.8 % (11.5-14.5); WHITE BLOOD COUNT 6.9 x10^3/uL (4.0-11.0)
[2019-02-25 10:14] LABS: ALBUMIN 3.7 g/dL (3.4-5.0); ALBUMIN/GLOBULIN RATIO 0.9 (1.0-1.7); GFR 65.6; POTASSIUM 4.1 mmol/L (3.5-5.1); TOTAL BILIRUBIN 0.3 mg/dL (0.2-1.0); TOTAL PROTEIN 7.6 g/dL (6.4-8.2)
[2019-02-25 14:42] LABS: THYROID STIM HORMONE (TSH) 1.677 uIU/mL (0.358-3.740)
[2019-02-25 21:18] LABS: DHEA SO4 263.7 ug/dL (84.8-378.0); ESTRADIOL LEVEL 47.9 pg/mL (.); FSH 8.2 mIU/mL (.); LUTEINIZING HORMONE 17.8 mIU/mL (.); PROLACTIN 9.3 ng/mL (4.8-23.3)
[2019-02-26 00:09] LABS: HEMOGLOBIN A1C 5.4 % (4.8-5.6)
[2019-02-26 11:12] LABS: INSULIN LEVEL 54.6 uIU/mL (2.6-24.9)
[2019-03-01 15:10] LABS: TESTOSTERONE FREE 1.61 ng/dL (0.10-0.85); TESTOSTERONE TOTAL 50 ng/dL (8-48)
== END | disposition home or self-care (01) ==
LOC: LAB 08:58
PROVIDERS: ATTEND Obstetrics & Gynecology
DX: N92.6 Irregular menstruation, unspecified (principal)
CPT/HCPCS: 36415; 80053; 80061; 82627; 82670; 83001; 83002; 83036; 83525; 84146; 84402; 84403; 84443; 85025

== ENCOUNTER → 2019-02-25 | Outpatient (CLI) | payer OTHER ==
[2019-01-29 20:02] VITALS: BP 113/65
--- NOTE | 2019-02-25 16:27 | RAD ---
EXAM: Pelvic sonogram. HISTORY: Irregular periods. Female hirsutism. TECHNIQUE: Transabdominal and transvaginal sonographic imaging of the pelvis was performed. COMPARISON: None. FINDINGS: The uterus measures 8.7 x 5.5 x 4.2 cm. The endometrial stripe measures 7 mm in thickness. The right ovary measures 2.1 x 2.8 x 1.9 cm. The left ovary measures 2.8 x 2.2 x 3.1 cm. There is normal blood flow within both ovaries. There are small bilateral ovarian follicles. There are nabothian cysts within the cervix. There is no pelvic free fluid. IMPRESSION: 1. Small nabothian cysts. 2. Otherwise, unremarkable pelvic sonogram. Electronically signed by: Crista Jacobson MD (02/25/2019 4:24 PM) [facility]
== END | disposition home or self-care (01) ==
LOC: US 13:53
PROVIDERS: ATTEND Obstetrics & Gynecology
DX: N88.8 Other specified noninflammatory disorders of cervix uteri (principal)
CPT/HCPCS: 76830; 76856

== ENCOUNTER → 2019-03-17 | Outpatient (CLI) | payer OTHER | END | disposition home or self-care (01) | LOC: LAB 15:57 | PROVIDERS: ATTEND Obstetrics & Gynecology | DX: N92.6 Irregular menstruation, unspecified (principal) | CPT/HCPCS: 36415; 84144; 84702 ==

== ENCOUNTER → 2019-05-22 | Outpatient (CLI) | payer OTHER ==
[2019-05-23 08:11] LABS: ESTRADIOL LEVEL 49.9 pg/mL (.); INSULIN LEVEL 35.4 uIU/mL (2.6-24.9); LUTEINIZING HORMONE 16.7 mIU/mL (.); PROGESTERONE 0.1 ng/mL (.)
[2019-05-25 13:08] LABS: TESTOSTERONE FREE 1.26 ng/dL (0.10-0.85); TESTOSTERONE TOTAL 45 ng/dL (8-48)
== END | disposition home or self-care (01) ==
LOC: LAB 10:24
PROVIDERS: ATTEND Nurse Practitioner Women's Health
DX: E88.81 Metabolic syndrome and other insulin resistance (principal)
CPT/HCPCS: 36415; 82627; 82670; 83001; 83002; 83498; 83525; 84144; 84402; 84403

== ENCOUNTER → 2019-08-19 | Outpatient (CLI) | payer OTHER ==
[2019-08-19 09:49] LABS: BASO # 0.1 x10^3/uL (0.0-0.2); BASO % 1 % (0-3); EOS # 0.2 x10^3/uL (0.0-0.7); EOS % 2 % (0-3); HEMATOCRIT 43.9 % (36.0-47.0); HEMOGLOBIN 14.5 g/dL (12.0-15.5); LYMPH # 1.8 x10^3/uL (1.0-4.8); LYMPH % 25 % (24-48); MEAN CORPUSCULAR HEMOGLOBIN 29 pg (25-35); MEAN CORPUSCULAR HGB CONC 33 g/dL (31-37); MEAN CORPUSCULAR VOLUME 87 fL (79-100); MONO # 0.5 x10^3/uL (0.0-1.1); MONO % 7 % (0-9); NEUT # 4.7 x10^3uL (1.8-7.7); NEUT % 64 % (31-73); PLATELET COUNT 294 x10^3/uL (140-400); RED BLOOD COUNT 5.05 x10^6/uL (3.50-5.40); RED CELL DISTRIBUTION WIDTH 13.3 % (11.5-14.5); WHITE BLOOD COUNT 7.3 x10^3/uL (4.0-11.0)
[2019-08-19 10:00] LABS: CALCIUM 8.9 mg/dL (8.5-10.1); CREATININE 1.1 mg/dL (0.6-1.0); GFR 58.3; POTASSIUM 4.1 mmol/L (3.5-5.1); TOTAL BILIRUBIN 0.4 mg/dL (0.2-1.0); TOTAL PROTEIN 7.9 g/dL (6.4-8.2)
[2019-08-19 13:34] LABS: FREE T4 1.29 ng/dL (0.76-1.46); THYROID STIM HORMONE (TSH) 1.965 uIU/mL (0.358-3.740)
== END | disposition home or self-care (01) ==
LOC: LAB 09:27
PROVIDERS: ATTEND Registered Nurse
DX: Z13.6 Encounter for screening for cardiovascular disorders (principal); Z13.29 Encounter for screening for other suspected endocrine disorder
CPT/HCPCS: 36415; 80053; 80061; 84439; 84443; 84480; 85025

== ENCOUNTER → 2019-08-25 | Outpatient (CLI) | payer OTHER | END | disposition home or self-care (01) | LOC: LAB 08:01 | PROVIDERS: ATTEND Obstetrics & Gynecology | DX: N97.9 Female infertility, unspecified (principal) | CPT/HCPCS: 36415; 84702 ==

== ENCOUNTER → 2019-08-27 | Outpatient (CLI) | payer OTHER ==
[~2019-08-27] MED LIST changes: +IOHEXOL 240 MG/ML 50ML VIAL. IART ONE
--- NOTE | 2019-08-27 09:31 | RAD ---
HYSTEROSALPINGOGRAM W/INJ HISTORY: Infertility COMPARISON: None TECHNIQUE: Patient was informed of the risks to include pain, infection and bleeding. All questions were answered. Patient signed a written consent form for hysterosalpingogram. Patient was placed in a supine position on the fluoroscopy table. Speculum was inserted. Cervix was cleansed with Betadine solution. HSG catheter was inserted and secured with balloon inflation. Contrast was injected during fluoroscopic visualization, 3 cc of Omnipaque contrast. The balloon was deflated and catheter removed. Speculum was removed. There were no immediate complications. FINDINGS: No focal filling defect is identified of the uterus. Both fallopian tubes are patent. Cervix is patent. Fluoroscopy time: 30 seconds, 8 images. IMPRESSION: 1. Unremarkable hysterosalpingogram. Patent bilateral fallopian tubes. Electronically signed by: Aric Desir DO (08/27/2019 9:28 AM) [id number]
== END | disposition home or self-care (01) ==
LOC: RAD 08:28
PROVIDERS: ATTEND Obstetrics & Gynecology
DX: N97.9 Female infertility, unspecified (principal)
CPT/HCPCS: 58340; 74740

== ENCOUNTER → 2019-11-03 | Outpatient (CLI) | payer OTHER ==
[~2019-11-03] MED LIST changes: -IOHEXOL 240 MG/ML 50ML VIAL. IART ONE
== END | disposition home or self-care (01) ==
LOC: LAB 10:59
PROVIDERS: ATTEND Internal Medicine Cardiovascular Disease
DX: Z20.828 Contact with and (suspected) exposure to other viral communicable diseases (principal)
CPT/HCPCS: 87635

== ENCOUNTER → 2020-02-03 | Outpatient (CLI) | payer OTHER | END | disposition home or self-care (01) | LOC: LAB 07:13 | PROVIDERS: ATTEND Internal Medicine Cardiovascular Disease | DX: R05 Cough (principal); R06.03 Acute respiratory distress; Z20.828 Contact with and (suspected) exposure to other viral communicable diseases | CPT/HCPCS: 36415; U0003-CS ==

== ENCOUNTER → 2020-02-03 | Outpatient (CLI) | payer OTHER ==
[2020-02-03 07:25] LABS: BASO # 0.1 x10^3/uL (0.0-0.2); BASO % 1 % (0-3); EOS # 0.2 x10^3/uL (0.0-0.7); EOS % 2 % (0-3); HEMATOCRIT 43.1 % (36.0-47.0); HEMOGLOBIN 14.2 g/dL (12.0-15.5); LYMPH # 1.8 x10^3/uL (1.0-4.8); LYMPH % 26 % (24-48); MEAN CORPUSCULAR HEMOGLOBIN 29 pg (25-35); MEAN CORPUSCULAR HGB CONC 33 g/dL (31-37); MEAN CORPUSCULAR VOLUME 88 fL (79-100); MONO # 0.6 x10^3/uL (0.0-1.1); MONO % 9 % (0-9); NEUT # 4.4 x10^3uL (1.8-7.7); NEUT % 63 % (31-73); PLATELET COUNT 252 x10^3/uL (140-400); RED BLOOD COUNT 4.89 x10^6/uL (3.50-5.40); RED CELL DISTRIBUTION WIDTH 13.6 % (11.5-14.5); WHITE BLOOD COUNT 7.1 x10^3/uL (4.0-11.0)
[2020-02-03 07:38] LABS: ALBUMIN 3.4 g/dL (3.4-5.0); ALBUMIN/GLOBULIN RATIO 0.9 (1.0-1.7); CALCIUM 8.9 mg/dL (8.5-10.1); CREATININE 1.2 mg/dL (0.6-1.0); GFR 52.7; POTASSIUM 3.9 mmol/L (3.5-5.1); TOTAL BILIRUBIN 0.3 mg/dL (0.2-1.0); TOTAL PROTEIN 7.2 g/dL (6.4-8.2)
[2020-02-05 15:08] LABS: FSH 6.2 mIU/mL (.); LUTEINIZING HORMONE 9.8 mIU/mL (.)
[2020-02-06 01:06] LABS: HEMOGLOBIN A1C 5.7 % (4.8-5.6)
== END | disposition home or self-care (01) ==
LOC: LAB 06:42
PROVIDERS: ATTEND Nurse Practitioner Women's Health
DX: E28.2 Polycystic ovarian syndrome (principal)
CPT/HCPCS: 36415; 80053; 82626; 83001; 83002; 83036; 83525; 85025

== ENCOUNTER → 2020-02-09 | Outpatient (CLI) | payer OTHER | END | disposition home or self-care (01) | LOC: LAB 15:07 | PROVIDERS: ATTEND Internal Medicine Cardiovascular Disease | DX: U07.1 COVID-19 (principal) | CPT/HCPCS: C9803; U0003; 36415 ==

== ENCOUNTER → 2020-02-25 | Outpatient (CLI) | payer OTHER | LOC: LAB 08:24 | PROVIDERS: ATTEND Internal Medicine Cardiovascular Disease | DX: R05 Cough (principal); R06.03 Acute respiratory distress; Z20.828 Contact with and (suspected) exposure to other viral communicable diseases | CPT/HCPCS: U0003-CS ==

== ENCOUNTER → 2020-02-29 | Outpatient (CLI) | payer OTHER | END | disposition home or self-care (01) | LOC: EEVIPCON → LAB 09:10 | PROVIDERS: ATTEND Internal Medicine Cardiovascular Disease | DX: R05 Cough (principal); R06.03 Acute respiratory distress; Z20.828 Contact with and (suspected) exposure to other viral communicable diseases | CPT/HCPCS: U0003-CS ==

== ENCOUNTER → 2021-02-10 | Outpatient (CLI) | payer OTHER | LOC: LAB 15:08 | PROVIDERS: ATTEND Internal Medicine Cardiovascular Disease | DX: Z20.822 Contact with and (suspected) exposure to COVID-19 (principal) | CPT/HCPCS: U0003; U0005 ==

== ENCOUNTER → 2021-02-18 | Outpatient (CLI) | payer OTHER | LOC: LAB 09:05 | PROVIDERS: ATTEND Internal Medicine Cardiovascular Disease | DX: Z20.822 Contact with and (suspected) exposure to COVID-19 (principal) | CPT/HCPCS: C9803; U0003 ==

== ENCOUNTER → 2021-02-26 | Outpatient (CLI) | payer OTHER | LOC: LAB 08:00 | PROVIDERS: ATTEND Internal Medicine Cardiovascular Disease | DX: Z20.822 Contact with and (suspected) exposure to COVID-19 (principal) | CPT/HCPCS: C9803; U0003 ==

== ENCOUNTER → 2021-03-05 | Outpatient (CLI) | payer OTHER | LOC: LAB 09:30 | PROVIDERS: ATTEND Internal Medicine Cardiovascular Disease | DX: Z20.822 Contact with and (suspected) exposure to COVID-19 (principal) | CPT/HCPCS: C9803; U0003 ==

== ENCOUNTER → 2021-03-12 | Outpatient (CLI) | payer OTHER | LOC: LAB 08:30 | PROVIDERS: ATTEND Internal Medicine Cardiovascular Disease | DX: Z20.822 Contact with and (suspected) exposure to COVID-19 (principal) | CPT/HCPCS: C9803; U0003 ==

== ENCOUNTER → 2021-03-19 | Outpatient (CLI) | payer OTHER | LOC: LAB 09:00 | PROVIDERS: ATTEND Internal Medicine Cardiovascular Disease | DX: Z20.822 Contact with and (suspected) exposure to COVID-19 (principal) | CPT/HCPCS: C9803; U0003 ==

== ENCOUNTER → 2021-03-26 | Outpatient (CLI) | payer OTHER | LOC: LAB 10:00 | PROVIDERS: ATTEND Internal Medicine Cardiovascular Disease | DX: Z20.822 Contact with and (suspected) exposure to COVID-19 (principal) | CPT/HCPCS: C9803; U0003 ==

== ENCOUNTER 2021-03-31 12:10 | Emergency (ER) | payer OTHER ==
[~2021-03-31] VITALS: Ht 170.2 cm; Wt 121.4 kg
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
[2021-03-31 14:55] VITALS: BP 133/79
== END 2021-03-31 14:55 | disposition home or self-care (01) ==
LOC: ER 12:10
DX: M54.2 Cervicalgia (principal); M25.511 Pain in right shoulder; G43.909 Migraine, unspecified, not intractable, without status migrainosus; V89.2XXA Person injured in unspecified motor-vehicle accident, traffic, initial encounter; Y93.89 Activity, other specified; Y92.89 Other specified places as the place of occurrence of the external cause; Y99.8 Other external cause status
CPT/HCPCS: 70450; 72125; 73030; 81025; 99285-25